=== PATIENT | female | born 1955 | race Caucasian/White ===

== ENCOUNTER 2022-04-22 04:37 | Day surgery (SDC) | payer MEDICARE ==
[~2022-04-22] VITALS: Ht 154.9 cm; Wt 59.5 kg
[~2022-04-22 04:37] MED LIST: AMLO10TA55 PO; LISI10TA24 PO; ROSU5TAB PO
[2022-04-22] MEDS ORDERED: DEXAMETHASONE SOD PHOS 4 MG/ML VIAL IVP ONE (04:38)
[2022-04-22] MEDS ORDERED: ONDANSETRON HCL 4 MG/2 ML VIAL IVP ONE (04:38)
[2022-04-22] MEDS ORDERED: MIDAZOLAM HCL 2 MG/2 ML VIAL IVP ONE (04:38)
[2022-04-22] MEDS ORDERED: PROPOFOL 1% 20 ML VIAL IVP ONE (04:38)
[2022-04-22] MEDS ORDERED: FentaNYL CITRATE PF 100 MCG/2 ML VIAL IVP ONE (04:38)
[2022-04-22] MEDS ORDERED: LIDOCAINE/PF 2% 5 ML VIAL IM ONE (04:38)
[2022-04-22] MEDS ORDERED: RINGERS SOLUTION,LACTATED 1,000 ML IV ONE ×2 (05:00→05:16)
[2022-04-22 05:26] LABS: COVID AG,FIA SOURCE NASAL SWAB
[2022-04-22] MEDS ORDERED: BUPIVACAINE LIPOSOME/PF 1.3%-13.3MG/ML SUSPENSION 20 ML VIAL INJ ONE (05:45)
[2022-04-22] MEDS ORDERED: VANCOMYCIN HCL 1 GM/VIAL ONE (05:46)
[2022-04-22] MEDS ORDERED: BUPIVACAINE HCL/PF 0.5% 30 ML VIAL ONE (05:46)
[2022-04-22 05:50] LABS: BASOPHILS % (AUTO) 1.2 % (0.0-2.0); EOSINOPHILS % (AUTO) 3.9 % (1.0-6.0); HEMATOCRIT 37.7 % (36-46); HEMOGLOBIN 12.5 g/dL (12.0-16.0); LYMPHOCYTES # (AUTO) 1.4 K/uL (1.0-4.8); LYMPHOCYTES % (AUTO) 36.9 % (22.0-44.0); MEAN CORPUSCULAR HEMOGLOBIN 30.4 pg (26.0-34.0); MEAN CORPUSCULAR HGB CONC 33.2 G/dL (31.0-37.0); MEAN CORPUSCULAR VOLUME 92 fL (80-100); MONOCYTES # (AUTO) 0.4 K/uL (0.1-1.0); MONOCYTES % (AUTO) 10.9 % (2.0-9.0); NEUTROPHILS # (AUTO) 1.7 K/uL (1.8-7.7); NEUTROPHILS % (AUTO) 47.1 % (40.0-70.0); PLATELET COUNT (AUTO) 289 K/uL (150-450); RED BLOOD CELL COUNT(AUTO) 4.11 MIL/uL (4.00-5.20); RED CELL DISTRIBUTION WIDTH 13.4 % (11.5-14.5)
[2022-04-22] MEDS ORDERED: BUPIVACAINE HCL/PF 0.25% 30 ML VIAL ONE (05:52)
[2022-04-22 06:04] LABS: CALCIUM, TOTAL 9.5 mg/dL (8.8-10.5); CREATININE 0.93 mg/dL (0.60-1.30); POTASSIUM 3.7 mmol/L (3.5-5.1)
[2022-04-22] MEDS ORDERED: MUPIROCIN CALCIUM 2% 22 GM OINTMENT ONE (06:04)
[2022-04-22] MEDS ORDERED: SODIUM CL IRRIG SOLN BAG 3,000 ML IRRIG ONE (06:04)
[2022-04-22] MEDS ORDERED: FentaNYL CITRATE PF 100 MCG/2 ML VIAL IVP PRN (07:15)
[2022-04-22] MEDS ORDERED: SUGAMMADEX SODIUM 200 MG/2 ML VIAL IVP ONE (07:16)
[2022-04-22] MEDS ORDERED: OXYGEN THERAPY IH SCH (08:00)
[2022-04-22] MEDS ORDERED: HYDROmorphone HCL 2 MG/ML SYRINGE ONE (08:10)
[2022-04-22] MEDS: HYDROmorphone HCL 2 MG/ML SYRINGE IVP PRN ×5 (08:11→08:53)
== END 2022-04-22 10:20 | disposition home or self-care (01) ==
LOC: SURGERY 04:37
PROVIDERS: ATTEND Orthopaedic Surgery
DX: S52.572A Other intraarticular fracture of lower end of left radius, initial encounter for closed fracture (principal); S52.612A Displaced fracture of left ulna styloid process, initial encounter for closed fracture; S63.092A Other subluxation of left wrist and hand, initial encounter; I10 Essential (primary) hypertension; X58.XXXA Exposure to other specified factors, initial encounter; Y93.89 Activity, other specified; Y92.89 Other specified places as the place of occurrence of the external cause; Y99.8 Other external cause status; Z79.899 Other long term (current) drug therapy; Z20.822 Contact with and (suspected) exposure to COVID-19
CPT/HCPCS: 25609; 80048; 85025; 36415; 93005; 87426; 77071; C1713; J3490 ×2; J2704; J0690; J1100; J3010; J1170; J2405; J3370; Q9967; J7120; C9290; C9803; J2250